=== PATIENT | male | born 1945 | race Caucasian/White ===

== ENCOUNTER 2022-12-30 08:19 | Emergency (ER) | payer MEDICARE ==
[2022-12-30 08:37] VITALS: TEMP 98; O2SAT 95
--- NOTE | 2022-12-30 09:15 | ERPHSYRPT ---
- History of Present Illness Time Seen by Provider: 12/30/22 09:11 Source: patient Exam Limitations: no limitations Patient Subjective Stated Complaint: Pt hadn't felt well for a few days and thought he was having some sinus pressure and when he woke this morning he began having a massive nose bleed Triage Nursing Assessment: Pt was brought to the ER by his friend, hypertensive, denies pain, pt had a headache above his eyes last night and took a full strength aspirin and woke with a bloody nose at 0400, pt did take an aspirin the night before, as he states that it helps him sleep, pt states that it was a large amount of blood but the bleeding appears to be under control at this time, pt states that he has never had a nose bleed before, pulses normal, skin n/w/d, doesn't appear to be in any distress Physician History: Patient is a 77-year-old male presents to our ED for evaluation and treatment of epistaxis. Patient states he awoke this morning at approximately 4 AM with a nosebleed. Patient packed his nose just prior to arrival. No active bleeding at this time. Patient states yesterday he was experiencing pain in his frontal sinus. Patient took a "full-strength aspirin". Patient currently feels well. He denies any frontal headache or pain at this time. Patient denies a history of nosebleed. He is not on a blood thinner. Patient otherwise feels well. He voices no other complaints or concerns at this time. Portions of this note were created with voice recognition technology. There may be grammatical, spelling, punctuation or sound alike errors Timing/Duration: today Severity: moderate Modifying Factors: Improves With: other (Nose packing stopped the bleed. He denies experiencing bleeding posteriorly into throat) Associated Symptoms: denies symptoms Allergies/Adverse Reactions: No Known Drug Allergies Allergy (Verified 12/30/22 08:37) Home Medications: Dapagliflozin Propanediol [Farxiga] 10 mg PO DAILY 12/30/22 [History] Losartan/Hydrochlorothiazide [Losartan-Hctz 100-25 mg Tab] 0.5 tab PO DAILY 12/30/22 [History] Rosuvastatin Calcium 20 mg PO DAILY 12/30/22 [History] carvediloL [Carvedilol] 25 mg PO BID 12/30/22 [History] Hx Influenza Vaccination/Date Given: No Hx Pneumococcal Vaccination/Date Given: No Travel Risk - International Travel Have you traveled outside of the country in past 3 weeks: No - Coronavirus Screening Are you exhibiting any of the following symptoms?: No Close contact with a COVID-19 positive Pt in past 14-21 Days: No - Vaccine Status Have you recieved a Covid-19 vaccination: Yes Biosecurity Officer: Pfizer - Vaccination Dates Date of 2cond Vaccination (if applicable): 2020 - Review of Systems Constitutional: No Symptoms, No Fever, No Chills Eyes: No Symptoms Ears, Nose, & Throat: No Symptoms Respiratory: No Symptoms, No Cough, No Dyspnea Cardiac: No Symptoms, No Chest Pain, No Edema, No Syncope Abdominal/Gastrointestinal: No Symptoms, No Abdominal Pain, No Nausea, No Vomiting, No Diarrhea Genitourinary Symptoms: No Symptoms, No Dysuria Musculoskeletal: No Symptoms, No Back Pain, No Neck Pain Skin: No Symptoms, No Rash Neurological: No Symptoms, No Dizziness, No Focal Weakness, No Sensory Changes Psychological: No Symptoms Endocrine: No Symptoms Hematologic/Lymphatic: No Symptoms Immunological/Allergic: No Symptoms All Other Systems: Reviewed and Negative - Past Medical History Pertinent Past Medical History: Yes Cardiac History: High Cholesterol, Hypertension Endocrine Medical History: Diabetes Type II History: Renal Disease - Past Surgical History Past Surgical History: No - Social History Smoking Status: Current some day smoker Exposure to second hand smoke: Yes Drug Use: none Patient Lives Alone: Yes - Nursing Vital Signs Nursing Vital Signs: Initial Vital Signs Temperature 98.0 F 12/30/22 08:23 Pulse Rate 90 12/30/22 08:23 Blood Pressure 167/78 12/30/22 08:23 O2 Sat by Pulse Oximetry 95 12/30/22 08:23 Pain Scale Pain Intensity 0 - Physical Exam General Appearance: no apparent distress, alert Eye Exam: PERRL/EOMI, eyes nml inspection Ears, Nose, Throat Exam: normal ENT inspection, TMs normal, pharynx normal, moist mucous membranes, other (Packing in left nare which patient placed at home from a first-aid kit) Neck Exam: normal inspection, non-tender, supple, full range of motion Respiratory Exam: normal breath sounds, lungs clear, airway intact, No respiratory distress Cardiovascular Exam: regular rate/rhythm, normal heart sounds, normal peripheral pulses Gastrointestinal/Abdomen Exam: soft, normal bowel sounds, No tenderness, No mass Back Exam: normal inspection, normal range of motion, No CVA tenderness, No vertebral tenderness Extremity Exam: normal inspection, normal range of motion, pelvis stable Neurologic Exam: alert, oriented x 3, cooperative, normal mood/affect, nml cerebellar function, nml station & gait, sensation nml, No motor deficits Skin Exam: normal color, warm, dry, No rash Lymphatic Exam: No adenopathy SpO2 Interpretation: normal SpO2: 95 O2 Delivery: Room Air - Course Nursing assessment & vital signs reviewed: Yes - Progress Progress: improved Progress Note: 77-year-old male presents to our ED with epistaxis. Patient self packed his left nare prior to arrival. We remove the packing. No bleeding. Patient asymptomatic. Vital stable. No indication for further work-up at this time. Will discharge home. Patient advised to avoid aspirin at least until told otherwise by his primary care doctor. Patient voices no other complaints or concerns at this time. Portions of this note were created with voice recognition technology. There may be grammatical, spelling, punctuation or sound alike errors Complexity of problems addressed is low acute uncomplicated No critical care time Complex of data reviewed and analyzed is none. No specialized testing ordered. Diagnosis made based on history and physical exam. Risk of complication and or risk morbidity/mortality patient management is low. Vital stable. Time spent to discharge patient is approximately 10 minutes. Plan of care established for shared decision making. No social determinants of health present to impede follow-up. Portions of this note were created with voice recognition technology. There may be grammatical, spelling, punctuation or sound alike errors 12/30/22 09:34 Counseled pt/family regarding: diagnosis, need for follow-up - Departure Departure Disposition: Home Clinical Impression: Epistaxis Condition: Stable Critical Care Time: No Additional Instructions: Discharge/Care Plan LOUIS MENDENHALL was seen on 12/30/22 in the Emergency Room. The patient was counseled regarding Diagnosis,Lab results, Imaging studies, need for follow up and when to return to the Emergency Room. Prescriptions given: Discharge Note I have spoken with the patient and/or caregivers. I have explained the patient's condition, diagnosis and treatment plan based on the information available to me at this time. I have answered the patient's and/or caregiver's questions and addressed any concerns. The patient and/or caregivers have as good understanding of the patient's diagnosis, condition and treatment plan as can be expected at this point. The vital signs have been stable. The patient's condition is stable and appropriate for discharge from the emergency department. The patient will pursue further outpatient evaluation with the primary care physician or other designated or consulting physician as outlined in the discharge instructions. The patient and/or caregivers are agreeable to this plan of care and follow-up instructions have been explained in detail. The patient and/or caregivers have received these instruction. The patient/and or caregivers are aware that any significant change in condition or worsening of symptoms should prompt an immediate return to this or the closest emergency department or call 911.
[2022-12-30 09:38] VITALS: BP 155/101; PULSE 76; RESP 18
== END 2022-12-30 10:09 | disposition home or self-care (01) ==
LOC: ED 08:19
DX: R04.0 Epistaxis (principal); E78.5 Hyperlipidemia, unspecified; I10 Essential (primary) hypertension; E11.9 Type 2 diabetes mellitus without complications; Z79.84 Long term (current) use of oral hypoglycemic drugs; Z79.899 Other long term (current) drug therapy; Z72.0 Tobacco use
CPT/HCPCS: 99281